=== PATIENT | female | born 1980 | race Caucasian/White ===

== ENCOUNTER 2017-11-21 20:35 | Inpatient (IN) | payer OTHER ==
[~2017-11-21] VITALS: Ht 172.7 cm; Wt 141.1 kg
[2017-11-21 21:09] VITALS: Ht 172.7 cm; Wt 141.1 kg
[2017-11-21 22:38] LABS: UA SPECIFIC GRAVITY 1.015 (1.005-1.035); microscopic required? YES; urine erythrocyte TRACE (NEGATIVE)
[2017-11-21 22:40] LABS: CARBON DIOXIDE 21.3 mmol/L (21-32); CHLORIDE SERUM 102 mmol/L (98-107); CREATININE SERUM 0.9 mg/dL (0.6-1.0); GFR1 > 60 mL/min; GLUCOSE SERUM 131 mg/dL (74-106); POTASSIUM SERUM 3.8 mmol/L (3.5-5.1); SODIUM SERUM 135 mmol/L (136-145)
[2017-11-21 22:41] LABS: PLATELET COUNT 341 x10^3mcL (130-400)
[2017-11-21 22:43] LABS: BASOPHIL % 0 % (0-2); RED CELL DISTRIBUTION WIDTH 20.1 % (11.5-14.5)
[2017-11-21 22:45] LABS: ALKALINE PHOSPHATASE 106 U/L (46-116); ALT/SGPT 22 U/L (14-59); AST/SGOT 17 U/L (15-37); BILIRUBIN TOTAL 0.8 mg/dL (0.20-1.00); TOTAL PROTEIN, SERUM 6.7 g/dL (6.4-8.2)
[2017-11-21 23:08] LABS: ALBUMIN 3.3 g/dL (3.4-5.0)
[2017-11-21 23:34] LABS: rbc morphology (normal/abnorm) ABNORMAL (NORMAL)
[2017-11-21 23:35] LABS: ovalocyte/elliptocyte 2+
[2017-11-22] VITALS (9 sets, daily range): BP systolic 100–131; BP diastolic 39–66
[2017-11-22 02:31] LABS: MAGNESIUM 1.5 mg/dL (1.8-2.4); PHOSPHOROUS 2.2 mg/dL (2.5-4.9)
[2017-11-22 02:33] LABS: T3 TOTAL 1.41 ng/mL
[2017-11-22 02:38] LABS: CHOLESTEROL/HDL RATIO 2.6
[2017-11-22 02:41] LABS: FREE T4 1.43 ng/dL (0.76-1.46); FREE THYROXINE INDEX 4.1 ug/dL (1.4-4.5); T4(THYROXINE) 11.7 ug/dL (4.7-13.3)
[2017-11-22 03:04] LABS: TOTAL IRON BINDING CAPACITY 347 ug/dL (250-450)
[2017-11-22 03:06] LABS: IRON 11 ug/dL (50-170)
[2017-11-22 03:50] LABS: RED BLOOD CELLS 4.03 M/mm3 (4.10-5.10)
[2017-11-22 07:32] LABS: CALCIUM 7.3 mg/dL (8.5-10.1); CARBON DIOXIDE 20.9 mmol/L (21-32); CHLORIDE SERUM 109 mmol/L (98-107); CREATININE SERUM 0.7 mg/dL (0.6-1.0); GFR1 > 60 mL/min; GLUCOSE SERUM 116 mg/dL (74-106); MAGNESIUM 1.9 mg/dL (1.8-2.4); PHOSPHOROUS 3.4 mg/dL (2.5-4.9); POTASSIUM SERUM 4.3 mmol/L (3.5-5.1); SODIUM SERUM 139 mmol/L (136-145)
[2017-11-22 10:33] LABS: BASOPHIL % 0.5 % (0-2); PLATELET COUNT 271 x10^3mcL (130-400)
[2017-11-22 10:35] LABS: RED CELL DISTRIBUTION WIDTH 19.8 % (11.5-14.5)
[2017-11-22 11:06] LABS: schistocyte (helmet cell) 1+
[2017-11-22 11:07] LABS: tear drop cell (dacryocyte) 1+
[2017-11-22 11:08] LABS: ovalocyte/elliptocyte 2+
[2017-11-22 11:09] LABS: rbc morphology (normal/abnorm) ABNORMAL (NORMAL)
[2017-11-22 12:05] LABS: PLATELET COUNT 301 x10^3mcL (130-400)
[2017-11-22 12:07] LABS: RED CELL DISTRIBUTION WIDTH 19.5 % (11.5-14.5)
[2017-11-22 13:09] LABS: BAND NEUTROPHIL 8 % (0-10); BASOPHIL 0 % (0-2); MONOCYTE 4 % (0-7); SEGMENTED NEUTROPHILS 80 % (37-75); ovalocyte/elliptocyte 2+; schistocyte (helmet cell) 1+; tear drop cell (dacryocyte) 1+
[2017-11-22 13:10] LABS: PLATELET MORPHOLOGY LARGE PLATELET SEEN; rbc morphology (normal/abnorm) ABNORMAL (NORMAL)
[2017-11-22 14:32] LABS: AMPHETAMINE QUAL UR NONE DETECTED (See below)
[2017-11-23] VITALS (9 sets, daily range): BP systolic 105–133; BP diastolic 44–65
[2017-11-23 00:41] LABS: BASOPHIL % 0.8 % (0-2); PLATELET COUNT 309 x10^3mcL (130-400)
[2017-11-23 00:45] LABS: RED CELL DISTRIBUTION WIDTH 22.6 % (11.5-14.5)
[2017-11-23 01:24] LABS: ovalocyte/elliptocyte 3+; rbc morphology (normal/abnorm) ABNORMAL (NORMAL)
[2017-11-23 07:23] LABS: BASOPHIL % 0.3 % (0-2); PLATELET COUNT 254 x10^3mcL (130-400)
[2017-11-23 07:28] LABS: RED CELL DISTRIBUTION WIDTH 23.2 % (11.5-14.5)
[2017-11-23 07:32] LABS: CALCIUM 7.3 mg/dL (8.5-10.1); CARBON DIOXIDE 20.5 mmol/L (21-32); CHLORIDE SERUM 106 mmol/L (98-107); CREATININE SERUM 0.6 mg/dL (0.6-1.0); GFR1 > 60 mL/min; GLUCOSE SERUM 107 mg/dL (74-106); POTASSIUM SERUM 3.6 mmol/L (3.5-5.1); SODIUM SERUM 136 mmol/L (136-145)
[2017-11-23 07:33] LABS: rbc morphology (normal/abnorm) ABNORMAL (NORMAL)
[2017-11-23 13:54] LABS: microscopic required? YES; urine erythrocyte TRACE (NEGATIVE)
[2017-11-23 21:45] LABS: BASOPHIL % 0.3 % (0-2); PLATELET COUNT 264 x10^3mcL (130-400)
[2017-11-23 21:56] LABS: RED CELL DISTRIBUTION WIDTH 28.3 % (11.5-14.5)
[2017-11-23 22:22] LABS: ovalocyte/elliptocyte 2+; rbc morphology (normal/abnorm) ABNORMAL (NORMAL)
[2017-11-24 04:49] VITALS: BP 124/56
[2017-11-24 10:10] LABS: BASOPHIL % 0.2 % (0-2); PLATELET COUNT 245 x10^3mcL (130-400); RED CELL DISTRIBUTION WIDTH 28.3 % (11.5-14.5)
[2017-11-24 10:41] LABS: CALCIUM 8.1 mg/dL (8.5-10.1); CARBON DIOXIDE 23.8 mmol/L (21-32); CHLORIDE SERUM 107 mmol/L (98-107); CREATININE SERUM 0.6 mg/dL (0.6-1.0); GFR1 > 60 mL/min; GLUCOSE SERUM 122 mg/dL (74-106); POTASSIUM SERUM 3.8 mmol/L (3.5-5.1); SODIUM SERUM 139 mmol/L (136-145)
[2017-11-24 10:54] LABS: ovalocyte/elliptocyte 2+; schistocyte (helmet cell) 1+; tear drop cell (dacryocyte) 1+
[2017-11-24 10:55] LABS: rbc morphology (normal/abnorm) ABNORMAL (NORMAL)
[2017-11-24 13:17] VITALS: BP 130/62
[2017-11-24 17:37] VITALS: BP 126/60
[2017-11-24 21:10] VITALS: BP 124/68
[2017-11-25 04:33] VITALS: BP 121/52
[2017-11-25 06:20] LABS: BASOPHIL % 0.1 % (0-2); PLATELET COUNT 328 x10^3mcL (130-400)
[2017-11-25 06:25] LABS: CALCIUM 8.2 mg/dL (8.5-10.1); CARBON DIOXIDE 24.4 mmol/L (21-32); CHLORIDE SERUM 107 mmol/L (98-107); CREATININE SERUM 0.5 mg/dL (0.6-1.0); GFR1 > 60 mL/min; GLUCOSE SERUM 107 mg/dL (74-106); POTASSIUM SERUM 3.7 mmol/L (3.5-5.1); SODIUM SERUM 142 mmol/L (136-145)
[2017-11-25 06:44] LABS: rbc morphology (normal/abnorm) ABNORMAL (NORMAL)
[2017-11-25] MEDS ORDERED: COLACE100 MG PO (07:33)
[2017-11-25] MEDS ORDERED: NATURAL IRON65 MG PO (07:39)
[2017-11-25 08:32] VITALS: BP 129/59
[2017-11-25 10:39] VITALS: BP 129/59
== END 2017-11-25 11:20 | disposition home or self-care (01) | DRG 744 ==
LOC: ED 20:35 → DU 11-22 00:36 → EDBEDREQSVC 11-22 00:55 → DU 11-22 03:41
PROVIDERS: Emergency Medicine; Family Medicine; Obstetrics & Gynecology
PROC: 30233N1 Transfusion of Nonautologous Red Blood Cells into Peripheral Vein, Percutaneous Approach (ICD-10-PCS; 2017-11-22)
PROC: 0UDB7ZZ Extraction of Endometrium, Via Natural or Artificial Opening (ICD-10-PCS; principal; 2017-11-24 07:30)
DX: D25.9 Leiomyoma of uterus, unspecified (principal); N17.0 Acute kidney failure with tubular necrosis; D62 Acute posthemorrhagic anemia; E44.0 Moderate protein-calorie malnutrition; Z68.42 Body mass index [BMI] 45.0-49.9, adult; N92.0 Excessive and frequent menstruation with regular cycle; D50.9 Iron deficiency anemia, unspecified; E83.42 Hypomagnesemia; E83.39 Other disorders of phosphorus metabolism; E83.51 Hypocalcemia; F17.210 Nicotine dependence, cigarettes, uncomplicated; E66.01 Morbid (severe) obesity due to excess calories; Z85.41 Personal history of malignant neoplasm of cervix uteri
CPT/HCPCS: 84439; C1758; J1885; J1940; J1956; J2405; J2704; J2765; J2916; J3010; J3475; J3490; J7030; J7050; J7120; P9016; Q0092; Q0162; Q0163